=== PATIENT | female | born 1965 | race Caucasian/White ===

== ENCOUNTER → 2016-11-06 | Outpatient (CLI) | payer OTHER ==
--- NOTE | 2016-11-06 15:54 | RAD ---
Pelvic ultrasound, 11/06/2016: History: Dyspareunia Transabdominal and transvaginal scans were obtained. The uterus is within normal limits in size. The central uterine echo complex is not thickened. No uterine mass is seen. The ovaries are of normal size. No adnexal mass is evident. IMPRESSION: No significant abnormality is detected.
== END | disposition home or self-care (01) ==
LOC: US 15:03
PROVIDERS: ATTEND Nurse Practitioner Women's Health
DX: N94.10 Unspecified dyspareunia (principal)
CPT/HCPCS: 76830; 76856

== ENCOUNTER 2016-11-11 12:32 | Emergency (ER) | payer OTHER ==
[~2016-11-11] VITALS: Ht 170.2 cm; Wt 83.9 kg
[2016-11-11 12:54] VITALS: BP 135/74
--- NOTE | 2016-11-11 13:56 | RAD ---
Sacrum and coccyx 3 views. History: Fall yesterday, landed onto elbow, pain tailbone and lower back 3 views were taken of the sacrum and coccyx. There is slight deformity the anterior mid sacrum on the lateral view, a nondisplaced fracture is possible. Coccyx is in normal alignment. MRI could be of benefit for better evaluation. Impression: 1. Possible nondisplaced fracture of the sacrum.
--- NOTE | 2016-11-11 13:58 | RAD ---
Lumbar spine 3 views. History: Fall, pain 3 views were taken of the lumbar spine. The spine is in normal alignment. Disc spaces are normal in height. A fracture is not identified. Again noted is the step-off of the anterior cortex of the sacrum suggesting a sacral fracture. Impression: 1. Possible sacral fracture. 2. No fracture or acute osseous abnormality in the lumbar spine.
--- NOTE | 2016-11-11 14:06 | PHYS DOC ---
Past Medical History Past Medical History: Cancer, Other Additional Past Medical Histor: BREAST CANCER, CHEMO, RADIATION TO THYROID Past Surgical History: Other Additional Past Surgical Histo: CHIN IMPLANT, L HAMMER TOE SX, RIGHT ANKLE, MASTECTOMY Alcohol Use: Occasionally Drug Use: None Adult General Chief Complaint Chief Complaint: BACK PAIN OR INJURY [facility] Patient is a 51 year old female complaining of low back pain and tailbone pain after slip and fall yesterday. Patient denies striking her head. Patient denies previous fractures in her lumbar spine her history of spinal cord injuries. Patient states that she has had a tailbone fracture in the past patient denies saddle anesthesia or bowel. Patient denies radiation of pain from her lower back. Of incidental note, patient is a breast cancer survivor for 5 years. Patient denies any history of metastases to the bone. Review of Systems Review of Systems Constitutional: Denies fever or chills [] Eyes: Denies change in visual acuity, redness, or eye pain [] HENT: Denies nasal congestion or sore throat [] Respiratory: Denies cough or shortness of breath [] Cardiovascular: No additional information not addressed in HPI [] GI: Denies abdominal pain, nausea, vomiting, bloody stools or diarrhea [] : Denies dysuria or hematuria [] Musculoskeletal: Denies back pain or joint pain [] Integument: Denies rash or skin lesions [] Neurologic: Denies headache, focal weakness or sensory changes [] Endocrine: Denies polyuria or polydipsia [] Allergies Allergies Allergies Coded Allergies Type Severity Reaction Last Updated Verified No Known Drug Allergies 11/11/16 No Physical Exam Physical Exam Constitutional: Well developed, well nourished, no acute distress, non-toxic appearance. [] HENT: Normocephalic, atraumatic, bilateral external ears normal, oropharynx moist, no oral exudates, nose normal. [] Eyes: PERRLA, EOMI, conjunctiva normal, no discharge. [] Neck: Normal range of motion, no tenderness, supple, no stridor. [] Cardiovascular:Heart rate regular rhythm, no murmur [] Lungs & Thorax: Bilateral breath sounds clear to auscultation [] Abdomen: Bowel sounds normal, soft, no tenderness, no masses, no pulsatile masses. [] Skin: Warm, dry, no erythema, no rash. [] Back: Back is without any evidence of injury or deformity. There is tenderness to palpation at the level of L5 and S1 both midline and paraspinous on any palpable defect or deformity. There is tenderness in the distal sacrum as well as the coccygeal sacral region without palpable defect, deformity, instability or crepitus. Patient has no complaints of pain in her hips or anterior pelvis. Extremities: No tenderness, no cyanosis, no clubbing, ROM intact, no edema. [] Neurologic: Alert and oriented X 3, normal motor function, normal sensory function, no focal deficits noted. [] Psychologic: Affect normal, judgement normal, mood normal. [] Current Patient Data Vital Signs Vital Signs Date Time Temp Pulse Resp B/P Pulse Ox O2 Delivery O2 Flow Rate FiO2 11/11/16 12:54 97.6 73 20 97 Room Air 97.6 EKG EKG [] Radiology/Procedures Radiology/Procedures [] [facility] [address] [place], [place] [id number] IMAGING REPORT Signed PATIENT: ROJAS SANCHEZ ACCOUNT: [id number] : 1965 LOCATION: ER AGE: 51 SEX: F EXAM STATUS: REG ER ORD. PHYSICIAN: WILMER REAVES REASON: fall yesterday-pain in the tailbonne and back PROCEDURE: LUMBAR SPINE 2-3V Lumbar spine 3 views. History: Fall, pain 3 views were taken of the lumbar spine. The spine is in normal alignment. Disc spaces are normal in height. A fracture is not identified. Again noted is the step-off of the anterior cortex of the sacrum suggesting a sacral fracture. Impression: 1. Possible sacral fracture. 2. No fracture or acute osseous abnormality in the lumbar spine. DICTATED and SIGNED BY: BONI BUCKLEY MD DATE: 11/11/16 2270 CC: WILMER REAVES; ANIYA ROLDAN MD ~ Course & Med Decision Making Course & Med Decision Making Pertinent Labs and Imaging studies reviewed. (See chart for details) [] Dragon Disclaimer Dragon Disclaimer This electronic medical record was generated, in whole or in part, using a voice recognition dictation system. Departure Departure Impression: Primary Impression: Lumbosacral strain Additional Impression: Sacral fracture, closed Disposition: 01 HOME, SELF-CARE Condition: GOOD Referrals: ANIYA ROLDAN MD (PCP) Patient Instructions: Lumbosacral Strain, Tailbone Injury, [id number] Additional Instructions: 1. As discussed, there is some buckling to the front part of your lower sacrum suggestive of a bony injury. There is no definitive fracture line. 2. Take the medication as prescribed. 3. Review discharge instructions; particularly reasons to return the emergency department. 4. Call your primary care doctor in the morning to schedule a follow-up appointment to be seen later this week. Scripts Orphenadrine Citrate 100 Mg Tablet.er100 Mg PO daily at bedtime #7 Prov:WILMER REAVES 11/11/16 Hydrocodone/Apap 5-325 ([place] 5-325 Tablet)1 Each Tablet1 Tab PO PRN Q6HRS PRN PAIN #15 TAB Prov:WILMER REAVES 11/11/16 Problem Qualifiers WILMER REAVES Nov 11, 2016 14:05
[2016-11-11] MEDS ORDERED: ORPH100T PO (14:10)
[2016-11-11] MEDS ORDERED: HYDR-971 PO (14:10)
== END 2016-11-11 14:19 | disposition home or self-care (01) ==
LOC: ER 12:32
DX: S32.10XA Unspecified fracture of sacrum, initial encounter for closed fracture (principal); S39.012A Strain of muscle, fascia and tendon of lower back, initial encounter; Z85.3 Personal history of malignant neoplasm of breast; Z90.10 Acquired absence of unspecified breast and nipple; Z79.899 Other long term (current) drug therapy; W01.0XXA Fall on same level from slipping, tripping and stumbling without subsequent striking against object, initial encounter; Y93.89 Activity, other specified; Y92.89 Other specified places as the place of occurrence of the external cause; Y99.8 Other external cause status
CPT/HCPCS: 72100; 72220; 99284

== ENCOUNTER → 2016-11-21 | Outpatient (CLI) | payer OTHER ==
[2016-11-11 12:54] VITALS: BP 135/74
[~2016-11-21] MED LIST: HYDR-971 PO; ORPH100T PO
--- NOTE | 2016-11-21 16:25 | RAD ---
PROCEDURE MRI of the pelvis without contrast dated 11/21/2016. HISTORY Sacral pain after fall 2 weeks ago. TECHNIQUE Routine multiplanar multisequence MR imaging of the sacrum was performed. No contrast administered. COMPARISON None. FINDINGS There is buckling and step off at the anterior cortex of the S3 vertebral segment, seen best on the sagittal sequences. Transverse hypointense line extends to the posterior cortex. No displacement. There is patchy edema throughout the marrow. Sacrum is otherwise intact. Coccyx is intact. Minimal edema in the presacral fat. SI joints are symmetric. Mild spondylotic changes of the lower lumbar spine, incompletely evaluated. Marrow signal is otherwise homogeneous. No additional fractures are seen. Sacral nerve root foramina are adequate. No accessory muscle or soft tissue mass. Visualized course of the bilateral sciatic nerves within normal limits. No significant muscle edema or muscle atrophy. No free fluid. IMPRESSION - Nondisplaced transverse fracture through the upper margin of the S3 sacral segment with slight buckling of the anterior cortex. - Otherwise no significant bony or soft tissue abnormality. Electronically signed by: David Morales (Nov 21, 2016 16:23:48)
== END | disposition home or self-care (01) ==
LOC: MRI 14:54
PROVIDERS: ATTEND Physical Medicine & Rehabilitation
DX: M53.3 Sacrococcygeal disorders, not elsewhere classified (principal)
CPT/HCPCS: 72195

== ENCOUNTER → 2016-11-29 | Outpatient (CLI) | payer OTHER ==
[2016-11-29] VITALS (18 sets, daily range): BP systolic 109–137; BP diastolic 65–85
[~2016-11-29] VITALS: Ht 170.2 cm; Wt 81.6 kg
[~2016-11-29] MED LIST changes: +BUPR100T7 PO; +CEFAZOLIN 1GM IVPB FOR OMNI 50 ML IV ONE; +FENTANYL PF 250 MCG/5 ML VIAL. IV ONE; +FENTANYL PF 250 MCG/5 ML VIAL. ONE; +FLUMAZENIL 0.5 MG/5 ML VIAL. IV ONE; +KETOROLAC TROMETHAMINE 30 MG/ML SYRINGE. IV PRN; +LEVO150T PO; +LIDOCAINE 1% / SOD BICARB 8.4% 20 ML VIAL. IJ ONE; +MIDAZOLAM HCL/PF 5 MG/5 ML VIAL IV ONE; +MIDAZOLAM HCL/PF 5 MG/5 ML VIAL ONE; +NALOXONE 0.4 MG/ML VIAL. ONE; +NAPR220C4 PO; +Vitamin C PO; +Vitamin D PO
[2016-11-29 11:31] LABS: BASO # 0.1 x10^3/uL (0.0-0.2); BASO % 2 % (0-3); EOS % 8 % (0-3); HEMATOCRIT 38.2 % (36.0-47.0); HEMOGLOBIN 12.3 g/dL (12.0-15.5); LYMPH # 2.3 x10^3/uL (1.0-4.8); LYMPH % 35 % (24-48); MEAN CORPUSCULAR HEMOGLOBIN 25 pg (25-35); MEAN CORPUSCULAR HGB CONC 32 g/dL (31-37); MEAN CORPUSCULAR VOLUME 78 fL (79-100); MONO % 7 % (0-9); NEUT % 48 % (31-73); PLATELET COUNT 409 x10^3/uL (140-400); RED BLOOD COUNT 4.89 x10^6/uL (3.50-5.40); RED CELL DISTRIBUTION WIDTH 23.7 % (11.5-14.5); WHITE BLOOD COUNT 6.6 x10^3/uL (4.0-11.0)
[2016-11-29 11:40] LABS: INR 1.1 (0.8-1.1); PROTHROMBIN TIME PATIENT 13.2 SEC (11.7-14.0)
[2016-11-29 12:01] LABS: ANISOCYTOSIS MOD; HYPOCHROMIA SLIGHT; OVALOCYTES PRESENT; PLT ESTIMATE ADEQUATE (ADEQUATE); POIKILOCYTOSIS SLIGHT
--- NOTE | 2016-11-29 13:35 | PDOC ---
MODERATE SEDATION ASSESSMENT RISKS/ALTERNATIVES Risks/Alternatives Risks and alternatives of this type of sedation and procedure discussed with: RISK/ALTERNATIVES: Patient H & P ON CHART H & P H & P on chart and reviewed for co-morbid conditions and appropriate labs. H&P ON CHART: Yes STATUS PREG STATUS ASSESSED: Yes MEDS/ALLERGIES REVIEWED Meds/Allergies Reviewed Medications and Allergies including time and route of recently administered narcotics and sedatives. MEDS/ALLERGIES REVIEWED: Yes ASA RATING ASA RATING: I AIRWAY ASSESSMENT Airway Assessment Airway patency, oral function limitations, presence of caps, crowns, dentures, partials, and ability to extend neck assessed. AIRWAY ASSESSMENT: Yes MALLAMPATI SCORE MALLAMPATI SCORE: II PRE-SEDATION ASSESSMENT PRE-SEDATION ASSESSMENT: Yes ZANDRA BARNETT MD Nov 29, 2016 13:35
--- NOTE | 2016-11-29 13:41 | PDOC1 ---
History and Physical Date of Procedure Date of Admission 11/29/[address] guided bilateral S-3 vertebroplasty Indication Indication 51 YO female with S-3 fracture (by MRI) and persistent significant pain, precipitated by a fall. Past Medical History Cardiovascular: No pertinent hx Pulmonary: No pertinent hx Heme/Onc: Cancer (Dreast ) Past Surgical History Past Surgical History: Mastectomy Current Medications Current Medications Current Medications Lidocaine/Sodium Bicarbonate (Buffered Lidocaine 1%) 20 ml STK-MED ONCE IJ ; Start 11/29/16 at 12:35; Stop 11/29/16 at 12:36; Status DC Midazolam HCl (Versed) 5 mg STK-MED ONCE .ROUTE ; Start 11/29/16 at 12:35; Stop 11/29/16 at 12:36; Status DC Fentanyl Citrate (Fentanyl 5ml Vial) 250 mcg STK-MED ONCE .ROUTE ; Start at 12:35; Stop 11/29/16 at 12:36; Status DC Naloxone HCl (Narcan) 0.4 mg STK-MED ONCE .ROUTE ; Start 11/29/16 at 12:37; Stop 11/29/16 at 12:38; Status DC Flumazenil 0.5 mg 0.5 mg STK-MED ONCE IV ; Start 11/29/16 at 12:38; Stop at 12:39; Status DC Cefazolin Sodium (Ancef 1gm Ivpb For Omni) 50 ml @ As Directed STK-MED ONCE IV ; Start 11/29/16 at 12:43; Stop 11/29/16 at 12:44; Status DC Lidocaine/Sodium Bicarbonate (Buffered Lidocaine 1%) 20 ml 1X ONCE IJ ; Start 11/29/16 at 13:00; Stop 11/29/16 at 13:01; Status DC Midazolam HCl (Versed) 5 mg 1X ONCE IV ; Start 11/29/16 at 13:00; Stop at 13:01; Status DC Fentanyl Citrate 250 mcg 250 mcg 1X ONCE IV ; Start 11/29/16 at 13:00; Stop at 13:01; Status DC Cefazolin Sodium (Ancef 1gm Ivpb For Omni) 50 ml @ 100 mls/hr 1X ONCE IV ; Start 11/29/16 at 13:00; Stop 11/29/16 at 13:29; Status DC Active Scripts Active Orphenadrine Citrate 100 Mg Tablet.er 100 Mg PO DAILY AT BEDTIME [place] 5-325 Tablet (Acetaminophen/Hydrocodone Bitart) 1 Each Tablet 1 Tab PO PRN Q6HRS PRN Reported Aleve (Naproxen Sodium) 220 Mg Capsule 440 Mg PO QID [Vitamin D] 1 Cap PO DAILY [Vitamin C ] 1 Cap PO DAILY Wellbutrin Sr (Bupropion Hcl) 100 Mg Tablet.er 3 Tab PO DAILY Synthroid (Levothyroxine Sodium) 150 Mcg Tablet 1 Tab PO DAILY Allergies Allergies: Coded Allergies: No Known Drug Allergies (Unverified , 11/11/16) Physical Exam Vital Signs Vital Signs Date Time Temp Pulse Resp B/P Pulse Ox O2 Delivery O2 Flow Rate FiO2 11/29/16 13:32 72 16 100 11/29/16 13:25 Nasal Cannula 2.0 11/29/16 12:23 97.9 115/74 97.9 Lungs: Clear to auscultation Heart: Regular rate Psych/Mental Status: Mental status NL Other Tender to palpation over low sacrum. Diagnostic Data/Imaging Images PMC MRI pelvis from 11/21/16 personally reviewed Assessment Assessment S-3 fracture, with persistent, significant pain. Problems: Plan Plan CT guided bilateral S-3 vertebroplasty. ZANDRA BARNETT MD Nov 29, 2016 13:41
--- NOTE | 2016-11-29 13:44 | PDOC ---
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 Post-Procedure Diagnosis Post-Procedure Diagnosis Same Procedure Performed Procedure Performed CT guided bilateral S-3 vertebroplasty Type of Anesthesia Type of Anesthesia Local + Mod sedation Estimated Blood Loss EBL: Trace Condition of Patient Condition of Patient Stable. No apparent complication. Disposition Disposition Home from [facility] post recovery, if no issues. F/u with Dr Garcia and PCP. Full report to follow. ZANDRA BARNETT MD Nov 29, 2016 13:44
--- NOTE | 2016-11-29 16:48 | RAD ---
CT-guided bilateral S-3 vertebroplasty Indication: 51-year-old female with significant sacral pain and with recent S3 fracture (by MRI), precipitated by a fall. Moderate sedation: 41 minutes moderate sedation was provided utilizing a total of 5 g percent and 250 mcg fentanyl, IV. The patient was appropriately monitored by a qualified independent observer throughout the time of moderate sedation. Antibiotic: A single dose of Ancef was administered within 1 hour of the procedure start time. Consent: The procedure was explained in its entirety to the patient and/or the patient's designated wine sales representative by a member of the treatment team. This included a discussion of risks and benefits and commonly accepted alternatives to the procedure, as well as expected consequences of no treatment at all. Discussion of risks included, but was not limited to, those that are most frequent and those that are rare, but possibly severe or life-threatening, as well as the possibility of unforeseen complications. Sterility: All elements of maximal sterile barrier technique, including the use of a cap, mask, sterile gown, sterile gloves, large sterile sheet, appropriate hand hygiene, and 2% chlorhexidine for cutaneous antisepsis (or acceptable alternative antiseptic per current guidelines) were utilized. Procedure: Informed consent was obtained from the patient. She was placed prone on the CT scanner. Conscious sedation was provided with IV Versed and fentanyl. 1 g Ancef was given IV, prophylactically. CT-guided bilateral sacral vertebroplasty needle placement: Preliminary noncontrast CT images were obtained through sacrum in the axial plane. Posterior skin sites suitable for insertion of bilateral S3 vertebroplasty needles were selected and marked. Both areas were prepped and draped in the usual sterile fashion, utilizing all elements of maximal sterile barrier technique, as described above. Using aseptic technique, local anesthesia, and CT guidance, an 11-gauge sacral vertebroplasty needle was carefully advanced through posterior cortex of mid right S3 segment, taking care to avoid right S3 neural foramen. Similarly, using aseptic technique, local anesthesia, and CT guidance, a second 11-gauge sacral vertebroplasty needle was gently advanced through posterior cortex of mid left S3 segment, taking care to avoid left S3 neural foramen.. Satisfactory position of the bilateral vertebroplasty needles was then confirmed with completion CT images. CT-guided bilateral sacral vertebroplasty cement injections: Following successful, uneventful CT-guided insertion of bilateral sacral vertebroplasty needles, contrast opacified polymethylmethacrylate was carefully injected through both needles, in small [address] images were obtained following each small cement injection. This resulted in satisfactory contrast opacification of S3, bilaterally. There was no abnormal extraosseous extension of opacified cement into S3 neural foramina or into presacral space. The sacral vertebroplasty needles were then removed and sterile dressings were applied. Patient tolerated the procedure well without apparent complication. She was transported from the CT suite to the observation area in stable condition. Impression: Successful, uneventful CT-guided bilateral S3 vertebroplasty, as described. PQRS Compliance Statement: One or more of the following individualized dose reduction techniques was utilized for this CT procedure: 1. Automated exposure control. 2. Adjustment of MA and/or KV according to patient size. 3. Iterative reconstruction technique.
== END | disposition home or self-care (01) ==
LOC: INTRAD 11:03
PROVIDERS: ATTEND Radiology Vascular & Interventional Radiology
DX: S32.10XA Unspecified fracture of sacrum, initial encounter for closed fracture (principal); W19.XXXA Unspecified fall, initial encounter; Y93.9 Activity, unspecified; Y92.9 Unspecified place or not applicable; Y99.9 Unspecified external cause status; E03.9 Hypothyroidism, unspecified
CPT/HCPCS: 22511; 36415; 85007; 85027; 85610; C1758; C1892; J0690; J1885; J2250; J3010

== ENCOUNTER → 2017-01-10 | Outpatient (CLI) | payer OTHER ==
[2016-11-29 15:30] VITALS: BP 121/74
[~2017-01-10] MED LIST changes: -CEFAZOLIN 1GM IVPB FOR OMNI 50 ML IV ONE; -FENTANYL PF 250 MCG/5 ML VIAL. IV ONE; -FENTANYL PF 250 MCG/5 ML VIAL. ONE; -FLUMAZENIL 0.5 MG/5 ML VIAL. IV ONE; -KETOROLAC TROMETHAMINE 30 MG/ML SYRINGE. IV PRN; -LIDOCAINE 1% / SOD BICARB 8.4% 20 ML VIAL. IJ ONE; -MIDAZOLAM HCL/PF 5 MG/5 ML VIAL IV ONE; -MIDAZOLAM HCL/PF 5 MG/5 ML VIAL ONE; -NALOXONE 0.4 MG/ML VIAL. ONE
[2017-01-10 14:47] LABS: FREE T4 1.21 ng/dL (0.76-1.46)
[2017-01-10 21:12] LABS: ESTRADIOL LEVEL 90.3 pg/mL (.); PROGESTERONE 1.7 ng/mL (.)
[2017-01-13 10:13] LABS: % FREE TESTOSTERONE 1.18 % (0.50-2.80); TESTOSTERONE FREE 2.81 ng/dL (0.10-0.85); TESTOSTERONE TOTAL 238 ng/dL (8-48)
== END | disposition home or self-care (01) ==
LOC: LAB 14:00
PROVIDERS: ATTEND Nurse Practitioner Women's Health
DX: N95.9 Unspecified menopausal and perimenopausal disorder (principal); E07.9 Disorder of thyroid, unspecified
CPT/HCPCS: 36415; 82670; 84144; 84402; 84403; 84439; 84443; 84481

== ENCOUNTER → 2017-03-28 | Outpatient (CLI) | payer OTHER ==
[2016-11-29 15:30] VITALS: BP 121/74
[2017-03-28 16:15] LABS: FREE T4 1.29 ng/dL (0.76-1.46)
== END | disposition home or self-care (01) ==
LOC: LAB 15:24
PROVIDERS: ATTEND Nurse Practitioner Women's Health
DX: E89.0 Postprocedural hypothyroidism (principal)
CPT/HCPCS: 36415; 84439; 84443; 84481

== ENCOUNTER → 2017-12-06 | Outpatient (CLI) | payer OTHER ==
[2017-12-06 17:17] LABS: THYROID STIM HORMONE (TSH) 1.088 uIU/mL (0.358-3.74)
[2017-12-06 17:17] LABS: FREE T4 1.08 ng/dL (0.76-1.46)
[2017-12-07 06:15] LABS: PROGESTERONE 1.1 ng/mL (.)
[2017-12-07 06:15] LABS: ESTRADIOL LEVEL 99.9 pg/mL (.)
[2017-12-10 11:24] LABS: % FREE TESTOSTERONE 1.79 % (0.50-2.80); TESTOSTERONE FREE 3.38 ng/dL (0.10-0.85); TESTOSTERONE TOTAL 189 ng/dL (3-41)
[2017-12-10 15:29] LABS: ESTRONE LEVEL 65 pg/mL (.)
== END | disposition home or self-care (01) ==
LOC: LAB 16:23
DX: E03.9 Hypothyroidism, unspecified (principal); N95.9 Unspecified menopausal and perimenopausal disorder; F52.0 Hypoactive sexual desire disorder
CPT/HCPCS: 36415; 82670; 82679; 84144; 84402; 84403; 84439; 84443; 84481

== ENCOUNTER → 2018-02-13 | Outpatient (CLI) | payer OTHER ==
[2018-02-13 15:57] LABS: FREE T4 1.09 ng/dL (0.76-1.46)
[2018-02-13 16:01] LABS: THYROID STIM HORMONE (TSH) < 0.007 uIU/mL (0.358-3.74)
[2018-02-14 01:12] LABS: PROGESTERONE 1.4 ng/mL (.)
[2018-02-14 01:12] LABS: ESTRADIOL LEVEL 22.9 pg/mL (.)
[2018-02-17 14:23] LABS: ESTRONE LEVEL 38 pg/mL (.)
[2018-02-18 10:24] LABS: % FREE TESTOSTERONE 2.12 % (0.50-2.80); TESTOSTERONE TOTAL 80 ng/dL (3-41)
== END | disposition home or self-care (01) ==
LOC: LAB 15:07
DX: N95.9 Unspecified menopausal and perimenopausal disorder (principal)
CPT/HCPCS: 36415; 82670; 82679; 84144; 84402; 84403; 84439; 84443; 84481

== ENCOUNTER 2018-06-17 14:26 | Emergency (ER) | payer OTHER ==
[~2018-06-17] VITALS: Ht 165.1 cm; Wt 81.6 kg
[2018-06-17 15:14] VITALS: BP 147/85
[2018-06-17] MEDS ORDERED: ORPHENADRINE CITRATE 60 MG/2 ML VIAL. IM ONE (15:45)
[2018-06-17] MEDS ORDERED: KETOROLAC 15 MG/ML VIAL. IM ONE (15:45)
[2018-06-17] MEDS ORDERED: NAPR-514 PO (16:31)
[2018-06-17] MEDS ORDERED: ORPH100T PO (16:31)
--- NOTE | 2018-06-17 16:31 | PHYS DOC ---
Past Medical History Past Medical History: Cancer, Other Additional Past Medical Histor: BREAST CANCER, CHEMO, RADIATION TO THYROID Past Surgical History: Other Additional Past Surgical Histo: CHIN IMPLANT, L HAMMER TOE SX, RIGHT ANKLE, MASTECTOMY Alcohol Use: Occasionally Drug Use: None Adult General Chief Complaint Chief Complaint: NECK INJURY HPI HPI Patient is a 53 year old female who presents to the emergency Department today with complaints of pain in her neck that increases with movement. 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 She denies feeling any pop or any known injury. She denies any weakness, numbness, or tingling of her upper extremities. Patient states her neck pain shoots into her shoulders bilaterally and increases with movement. She reports her pain as a 7 out of 10 on the pain scale. States she has been taking Aleve and alternating the application of ice and heat to the sore areas for relief. Review of Systems Review of Systems Constitutional: Denies fever or chills [] Respiratory: Denies cough, wheezing, or shortness of breath [] Cardiovascular: Denies chest pain Musculoskeletal: Denies back pain or joint pain; reports pain in her neck that travels to her bilateral posterior shoulders [] Integument: Denies rash or skin lesions [] Neurologic: Denies headache, numbness, tingling, focal weakness or sensory changes of the extremities [] All other systems were reviewed and found to be within normal limits, except as documented in this note. Current Medications Current Medications Current Medications Medications (Trade) Dose Ordered Sig/Jesus Start Time Stop Time Status Last Admin Dose Admin Ketorolac Tromethamine (Toradol) 30 mg 1X ONCE 06/17/18 15:45 06/17/18 15:46 DC 06/17/18 16:05 30 MG Orphenadrine Citrate (Norflex) 60 mg 1X ONCE 06/17/18 15:45 06/17/18 15:46 DC 06/17/18 16:04 60 MG Allergies Allergies Allergies Coded Allergies Type Severity Reaction Last Updated Verified No Known Drug Allergies 11/11/16 No Physical Exam Physical Exam Constitutional: Well developed, well nourished, no acute distress, non-toxic appearance. [] HENT: Normocephalic, atraumatic, bilateral external ears normal, nose normal. [] Eyes: PERRLA, EOMI, conjunctiva normal, no discharge. [] Neck: No bony tenderness with palpation, supple, no stridor; limited range of motion when looking to the right due to pain expressed by patient patient has full forward and posterior motion of neck [] Skin: Warm, dry, no erythema, no rash. [] Back: No tenderness, no CVA tenderness. [] Extremities: No tenderness, no cyanosis, no clubbing, ROM intact, no edema. [] Neurologic: Alert and oriented X 3, normal motor function, normal sensory function, no focal deficits noted. [] Psychologic: Affect normal, judgement normal, mood normal. [] Current Patient Data Vital Signs Vital Signs Date Time Temp Pulse Resp B/P (MAP) Pulse Ox O2 Delivery O2 Flow Rate FiO2 18 15:14 98.0 60 16 147/85 (105) 99 Room Air 98.0 EKG EKG [] Radiology/Procedures Radiology/Procedures Discussed x-rays with patient, advised that without injury the likelihood that there is a bony abnormality is a slim, patient agrees.She declines to have x- ray done.[] Course & Med Decision Making Course & Med Decision Making Pertinent Labs and Imaging studies reviewed. 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 Her vital signs are stable. Her physical exam is not concerning for an acute fracture or herniated disc. She was given IM injections of Toradol and orphenadrine in the emergency department stated that she started to get a little relief after the injections. Advised patient to follow up with her primary care doctor for further evaluation. We'll prescribe naproxen and orphenadrine for home use. Patient also encouraged to continue application of heat or ice for comfort. She verbalized an understanding of home care, prescriptions, follow-up, and return to ED instructions with no further questions or concerns. Dragon Disclaimer Dragon Disclaimer This electronic medical record was generated, in whole or in part, using a voice recognition dictation system. Departure Departure Impression: Primary Impression: Cervical strain, acute Disposition: HOME, SELF-CARE Condition: STABLE Referrals: ANIYA ROLDAN MD (PCP) Patient Instructions: Cervical Sprain, [id number] Additional Instructions: Continue the application of ice or heat as needed for comfort. Fill the prescriptions and use them as directed. Follow-up with your primary care doctor in the next 1-2 days. Return to the emergency room if her symptoms worsen. Scripts Orphenadrine Citrate (ORPHENADRINE CITRATE) 100 Mg Tablet.er 1 TAB PO BID PRN for PAIN for 10 Days, #20 TAB 0 Refills Prov: KATERINA BOOTH APRN 06/17/18 Naproxen (NAPROXEN) 500 Mg Tablet 1 TAB PO BID PRN for PAIN for 10 Days, #20 TAB 0 Refills Prov: KATERINA BOOTH APRN 06/17/18 Problem Qualifiers Primary Impression: Cervical strain, acute Encounter type: initial encounter Qualified Codes: S16.1XXA - Strain of muscle, fascia and tendon at neck level, initial encounter KATERINA BOOTH APRN Jun 17, 2018 16:31
== END 2018-06-17 16:40 | disposition home or self-care (01) ==
LOC: ER 14:26
DX: S16.1XXA Strain of muscle, fascia and tendon at neck level, initial encounter (principal); M25.512 Pain in left shoulder; M25.511 Pain in right shoulder; Z90.10 Acquired absence of unspecified breast and nipple; X58.XXXA Exposure to other specified factors, initial encounter; Y93.89 Activity, other specified; Y92.89 Other specified places as the place of occurrence of the external cause; Y99.8 Other external cause status
CPT/HCPCS: 96372; 99284; J1885; J2360

== ENCOUNTER → 2018-07-30 | Outpatient (CLI) | payer OTHER ==
[~2018-07-30] MED LIST changes: +0.9 % SODIUM CHLORIDE 10 ML DISP.SYRIN. ID ONE; +CONTRAST GIVEN. MC PRN; +GADOBUTROL 7.5 MMOL/7.5 ML VIAL INT ART ONE; +IOHEXOL 240 MG/ML 50ML VIAL. INT ART ONE; +IOHEXOL 300 MG/ML 50 ML VIAL. INT ART ONE; +LIDOCAINE 1% Multi-Dose 20 ML VIAL. ID ONE; +NAPR-514 PO
--- NOTE | 2018-07-30 13:37 | KCIC ---
MR arthrogram of the right shoulder Indication: Right shoulder pain. Possible superior labral tear or rotator cuff pathology. Technique: Intra-articular contrast injected into the glenohumeral joint and is reported separately. Routine 4 plane sequences were obtained, including ABER positioning. FINDINGS: Artifact: No significant image degradation. Acromioclavicular joint: Mildly degenerative. No significant undersurface mass effect. Rotator cuff: * Supraspinatus-infraspinatus tendon: Full-thickness tear of the supraspinatus tendon, measures about 1 cm AP. Although margins are poorly defined the transverse measurement is about 15 mm. Full-thickness tear * Subscapularis tendon: Mild internal signal may be due to injection during the procedure. No high-grade tear. * Muscle bulk: Mild atrophy. * Subacromial subdeltoid bursa: Mild fluid accumulation. Articular cartilage: No acute cartilage defect or advanced DJD. Labrum: No evidence of labral tear or para labral cyst Biceps tendon: Intact Bones: Cystic changes at the greater tuberosity. No aggressive bone destruction. Soft tissue: No acute findings. Impression: Small full-thickness tear of the supraspinatus tendon. Electronically signed by: David Beach MD (07/30/2018 1:34 PM) [facility]
--- NOTE | 2018-08-04 17:05 | KCIC ---
Fluoroscopically guided injection of the right shoulder to facilitate a MR arthrogram 07/30/2018 Clinical history: Chronic right shoulder pain. Technique: After the risks and benefits of the procedure were explained to the patient, written informed consent was obtained. The anterior skin surface of the right shoulder was prepped and draped in sterile fashion. 1% lidocaine was used as local anesthetic. Under fluoroscopic guidance, a 22-gauge spinal needle was advanced into the anterior aspect of the right glenohumeral joint. Intra-articular position of the needle was confirmed with 5 cc of Omnipaque 300. Following this a solution of 5 cc of lidocaine, 10 cc normal saline, 5 cc of Omnipaque 300 and 0.1 cc of Gadavist were injected into the right shoulder under fluoroscopic control. Following this the needle was removed and hemostasis achieved at the puncture site. A sterile bandage was placed on the skin puncture site. The patient tolerated the procedure well and there were no immediate complications. The patient was taken to MRI for further imaging. The total fluoroscopic time for this study was 35 seconds. 1 digital fluoroscopic captured radiograph of the right shoulder was obtained. Impression: Technically successful injection of the right shoulder joint under fluoroscopy as outlined above. Electronically signed by: Wang Rodriguez MD (08/04/2018 5:01 PM) [facility]
== END | disposition home or self-care (01) ==
LOC: KCIC 11:12
PROVIDERS: ATTEND Orthopaedic Surgery
DX: S46.011A Strain of muscle(s) and tendon(s) of the rotator cuff of right shoulder, initial encounter (principal); M19.011 Primary osteoarthritis, right shoulder; G89.29 Other chronic pain; Z85.3 Personal history of malignant neoplasm of breast; Z79.899 Other long term (current) drug therapy; X58.XXXA Exposure to other specified factors, initial encounter; Y93.89 Activity, other specified; Y92.89 Other specified places as the place of occurrence of the external cause; Y99.8 Other external cause status
CPT/HCPCS: 20610; 73040; 73222; A9585; Q9967

== ENCOUNTER → 2018-07-31 | Outpatient (CLI) | payer OTHER ==
[~2018-07-31] MED LIST changes: -0.9 % SODIUM CHLORIDE 10 ML DISP.SYRIN. ID ONE; -CONTRAST GIVEN. MC PRN; -GADOBUTROL 7.5 MMOL/7.5 ML VIAL INT ART ONE; -IOHEXOL 240 MG/ML 50ML VIAL. INT ART ONE; -IOHEXOL 300 MG/ML 50 ML VIAL. INT ART ONE; -LIDOCAINE 1% Multi-Dose 20 ML VIAL. ID ONE
[2018-07-31 11:18] LABS: FREE T4 1.26 ng/dL (0.76-1.46); THYROID STIM HORMONE (TSH) 0.317 uIU/mL (0.358-3.74)
[2018-07-31 19:17] LABS: ESTRADIOL LEVEL 40.6 pg/mL (.); PROGESTERONE 2.2 ng/mL (.)
[2018-08-03 18:13] LABS: TESTOSTERONE FREE 2.21 ng/dL (0.10-0.85); TESTOSTERONE TOTAL 164 ng/dL (3-41)
== END | disposition home or self-care (01) ==
LOC: LAB 10:25
PROVIDERS: ATTEND Nurse Practitioner Women's Health
DX: N95.9 Unspecified menopausal and perimenopausal disorder (principal); E03.9 Hypothyroidism, unspecified; Z87.891 Personal history of nicotine dependence
CPT/HCPCS: 36415; 82626; 82670; 84144; 84402; 84403; 84439; 84443; 84481

== ENCOUNTER 2018-09-16 08:47 | Day surgery (SDC) | payer OTHER ==
[~2018-09-16] VITALS: Ht 172.7 cm; Wt 75.7 kg
[~2018-09-16 08:47] MED LIST changes: +CALC-98 PO; +DESV50TA PO; +HYDROmorphone 2 MG/ML VIAL IV PRN; +IV RINGERS,LACTATED 1000ML 1,000 ML IV SCH; +LIDOCAINE 1% PF 2 ML VIAL. ID PRN; +LIOT5TAB3 PO; +MORPHINE SULFATE 2 MG/ML VIAL. IV PRN; +ONDANSETRON PF 4 MG/2 ML VIAL. IV PRN; +PROCHLORPERAZINE 10 MG/2 ML VIAL. IV PRN; +TRAM50TA PO; +fentaNYL PF VIAL 100 MCG/2 ML VIAL IV PRN
[2018-09-16] MEDS ORDERED: ROPIVacaine 0.5% PF 20 ML VIAL. ONE (09:33)
[2018-09-16] MEDS ORDERED: BUPIVACAINE MPF 0.75% DEXTROSE 2 ML AMPUL. EPID ONE (10:00)
[2018-09-16] MEDS ORDERED: PROPOFOL 20 ML IV ONE (11:26)
[2018-09-16] MEDS ORDERED: ROCURONIUM 50 MG/5 ML VIAL. ONE ×2 (11:43→14:09)
[2018-09-16] MEDS ORDERED: ONDANSETRON PF 4 MG/2 ML VIAL. ONE (11:44)
[2018-09-16] MEDS ORDERED: DEXAMETHASONE SOD PHOS 20 MG/5 ML VIAL. ONE (11:44)
[2018-09-16] MEDS ORDERED: EPINEPHrine VIAL 30 MG/30 ML VIAL ONE (11:53)
[2018-09-16] MEDS ORDERED: MIDAZOLAM HCL/PF 2 MG/2 ML VIAL. ONE (12:11)
[2018-09-16] MEDS ORDERED: fentaNYL PF VIAL 100 MCG/2 ML VIAL ONE (12:11)
[2018-09-16] MEDS ORDERED: LIDOCAINE 1% PF 5 ML VIAL. ONE (12:11)
[2018-09-16] MEDS ORDERED: PHENYLEPHRINE in 0.9% NACL PF 1 MG/10 ML SYRINGE. IV ONE (13:16)
[2018-09-16] MEDS ORDERED: NEOSTIGMINE METHYLSULFATE 5 MG/5 ML SYRINGE. ONE (14:46)
[2018-09-16] MEDS ORDERED: GLYCOPYRROLATE 1 MG/5 ML VIAL. ONE (14:47)
[2018-09-16] MEDS ORDERED: SEVOFLURANE > 120 MINUTES. IH ONE (15:12)
[2018-09-16] MEDS ORDERED: oxyCODONE/APAP 7.5/325 1 TAB TABLET PO ONE (15:30)
--- NOTE | 2018-09-16 15:36 | DISCH ---
DISCHARGE INSTRUCTIONS Condition on Discharge Condition on Discharge: Stable Activity After Discharge Activity Instructions for Disc: Activity as tolerated, Other, see below ( immobilizer on at night, fine motor use of right arm with elbow at side during the day, may remove for pendulum exercises and gentle passive motion) Lifting Instructions after Dis: No heavy lifting, No pulling or pushing Driving Instructions after Dis: Do not drive today Diet after Discharge Diet after Discharge: Regular Wound Incision Care Wound/Incision Care: Ice to area for comfort, Change dressing (remove dressing after 2 days may then shower) Community/Resources/Services Services at Discharge: PT EVALUATE & TREAT (passive range of motion to right shoulder expected 4 weeks) Contacting the [facility] after DC Call your doctor for: Concerns you may have Follow-Up Follow up with: Elder 1 week VICKY FIERRO MD Sep 16, 2018 15:36
[2018-09-16] MEDS ORDERED: OXYC-327 PO (15:37)
[2018-09-16 16:00] VITALS: BP 106/68
--- NOTE | 2018-09-16 19:16 | PDOC4 ---
Operative Note Operative Note Date of surgery: 09/16/2018 Preoperative diagnosis: Full-thickness right shoulder rotator cuff tear Postoperative diagnosis: Same Operative procedure: Right shoulder arthroscopy and arthroscopic rotator cuff repair Surgeon: Elder Assist: Oz Anesthesia: Gen. 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 She had injured her dominant right shoulder a few months ago and a lifting injury at work. Unfortunately the pain and weakness did not improve culminating in a MRI of her shoulder which showed a full- thickness rotator cuff tear. She says this feels similar to what she did feel on the left shoulder underwent a similar procedure several years ago. The shoulder is very limiting to her and her daily activities as well as work activities precluding lifting away from her body working overhead and giving her some problems sleeping at night. We have talked about nonoperative measures such as physical therapy but that was previously no help to her. We talked about operative treatment with repair of the rotator cuff the long recovery process associated with that the rationale for protection and risks of possible nonhealing continued pain infection nerve or blood vessel damage medical or other anesthetic complications among others all her questions were answered she wishes to proceed with surgical evaluation and treatment. Operative text: Patient was identified procedure verified patient placed in the supine position on the operating table. After adequate amounts of general anesthesia plus a pre-existing scalene block were obtained she was placed in the decubitus position right side up all bony prominences were well-padded and the right shoulder was examined under anesthesia found a full range of motion no instability. The right shoulder was then prepped and draped in standard sterile fashion and after timeout was performed patient procedure identified and verified a standard posterior portal was established anterior portal established using spinal needle localization and the shoulder joint was systematically examined. Biceps anchor was found to be intact superior labrum with minimal degenerative change she had an unusual variant of the labrum was some attachment to the subscapularis but no evidence of separation of the labrum anteriorly subscapularis tendon itself was noted be intact is no sign of biceps subluxation she was noted to have a full-thickness supraspinatus tear anteriorly on palpation normal insertion of the infraspinatus and bare area of the humerus. Capsule ligament structures were likewise otherwise normal other than the anatomical variant anterior superiorly of the labrum. Glenohumeral surfaces were well-preserved. Subacromial space was then entered and bursa was cleared to allow visualization of the rotator cuff she had a full-thickness rotator cuff tear that actually had viable tissue laterally and a strip of tissue and an additional tear little less than a centimeter medially. These were layered over one another somewhat and after thorough probing I decided to perform a double row repair incorporating all of the tissue. The rotator cuff footprint was debrided back to bleeding tissue without decortication. 2 double loaded juggernaut anchors were placed medially and provided excellent fixation. A were placed in mattress configuration and medial row was tied down using sliding locking knots backed up by alternating post-half hitches. A lateral row repair was completed with a size 5.5 HubChilla anchor. This was supplemented by an additional single suture placed through the lateral row anchor due to loss of fixation of a 4.5 laterally placed anchor initially. Medial row nevertheless remained intact and excellent apposition of the rotator cuff repair was noted under all degrees of internal/external rotation. She really did not have significant anterior acromial spurring or involvement of the acromioclavicular joint candidate for no additional bony work was performed. The joint was drained of arthroscopic fluid portals closed with nylon suture sterile dressings were applied she is placed in an immobilizer and returned to preoperative holding in stable condition having tolerated procedure well VICKY FIERRO MD Sep 16, 2018 19:16
== END 2018-09-16 16:00 | disposition home or self-care (01) ==
LOC: SURG 08:47
PROVIDERS: ATTEND Orthopaedic Surgery
DX: S46.011A Strain of muscle(s) and tendon(s) of the rotator cuff of right shoulder, initial encounter (principal); X58.XXXA Exposure to other specified factors, initial encounter; Y93.89 Activity, other specified; Y92.89 Other specified places as the place of occurrence of the external cause; Y99.8 Other external cause status; M67.813 Other specified disorders of tendon, right shoulder; M19.011 Primary osteoarthritis, right shoulder; E03.9 Hypothyroidism, unspecified; Z87.891 Personal history of nicotine dependence; Z85.3 Personal history of malignant neoplasm of breast; Z98.890 Other specified postprocedural states; Z79.899 Other long term (current) drug therapy
CPT/HCPCS: 29822; 29827; A7015; C1713; J0171; J0690; J1100; J2250; J2370; J2405; J2704; J2710; J2795; J3010; J3490; J7120

== ENCOUNTER → 2018-12-01 | Outpatient (CLI) | payer OTHER ==
[~2018-12-01] MED LIST changes: +CONTRAST GIVEN. MC PRN; +GADOBUTROL 7.5 MMOL/7.5 ML VIAL INT ART ONE; +HYDR-3164 PO; -HYDR-971 PO; -HYDROmorphone 2 MG/ML VIAL IV PRN; +IOHEXOL 300 MG/ML 50 ML VIAL. INT ART ONE; -IV RINGERS,LACTATED 1000ML 1,000 ML IV SCH; +LIDOCAINE 1% Multi-Dose 20 ML VIAL. ID ONE; -LIDOCAINE 1% PF 2 ML VIAL. ID PRN; -MORPHINE SULFATE 2 MG/ML VIAL. IV PRN; -ONDANSETRON PF 4 MG/2 ML VIAL. IV PRN; +OXYC1TAB19 PO; +OXYC1TAB22 PO; -PROCHLORPERAZINE 10 MG/2 ML VIAL. IV PRN; -fentaNYL PF VIAL 100 MCG/2 ML VIAL IV PRN
--- NOTE | 2018-12-01 16:02 | KCIC ---
EXAM: Right glenohumeral joint injection WITH Fluoroscopic guidance DATE: 12/01/2018 2:30 PM CLINICAL HISTORY: Right glenohumeral joint pain, limited range of motion. COMPARISON: None pertinent TECHNIQUE: The patient was informed of the indications and alternatives for this procedure as well as risks and benefits. No immediate contraindication identified. The patient provided informed, written consent. Laterality was confirmed by the entire team following a time out. Following initial Right glenohumeral joint localization, a suitable area was sterilely prepped and draped. Local anesthesia was administered with 1% xylocaine. With intermittent fluoroscopic observation, a 22-gauge spinal needle was advanced into the Right glenohumeral joint sheath/capsule with confirmation of intra-synovial position with fluoroscopy. Subsequent infusion 12 cc solution containing 10 cc saline, 5 cc lidocaine 1%, 5 cc Isovue and 0.1 cc gadolinium. Hemostasis with local pressure. Local clinical exam negative for immediate complication. Patient informed re local potential signs or symptoms that may indicate need to return to ER/Ordering physician for further evaluation. Patient informed re precautionary measures after intra-synovial injection of anesthetic. Patient expressed understanding. Performing Physicians: Dr. Yesenia Brennan Blood Loss: 0 cc Total Fluoroscopy time: 5 seconds Total spot images taken: 0 Total fluoroscopic screening save images: 1 IMPRESSION: Successful intra-synovial injection right glenohumeral joint per clinical request. Electronically signed by: Jus Brennan MD (12/01/2018 3:57 PM) [facility]
--- NOTE | 2018-12-01 16:49 | KCIC ---
EXAM: MR arthrogram right shoulder DATE: 12/01/2018 3:30 PM COMPARISON: 12/01/2018, 07/30/2018 INDICATION: Right shoulder pain TECHNIQUE: Multiplanar, multisequence MRI of the right shoulder was performed without IV contrast. Intra-articular gadolinium contrast was administered. Please see separate report for full procedure details. FINDINGS: Iatrogenic distention of the right glenohumeral joint with gadolinium contrast. There is distention of the subacromial subdeltoid bursa for full-thickness rotator cuff tear described below. AC joint is congruent. No os acromiale. There is a full-thickness, full width tear of the supraspinatus tendon approximately 2 cm from the attachment measuring 3 cm in AP dimension. Tendon retraction to the level of the AC joint. There are 2 foci of susceptibility artifact within the subacromial-subdeltoid bursa morphologically suspicious for displaced tendon anchor. Increased signal and thickening of the intra-articular segment of the long head biceps tendon is consistent with mild tendinosis. Extra articular long biceps tendon is seen within the bicipital groove. No discrete labral tear is identified. No evidence for fracture or AVN. Focal chondral thinning superiorly. IMPRESSION: 1. Supraspinatus tendon approximately 2 cm from the tuberosity attachment measuring 3 cm in AP dimension with retraction to the level of the AC joint. 2. 2 foci of susceptibility artifact morphologically suspicious for displaced tendon anchor within the subacromial-subdeltoid bursa. 3. Intra-articular long head biceps tendinosis. Electronically signed by: Jus Brennan MD (12/01/2018 4:44 PM) [facility]
== END | disposition home or self-care (01) ==
LOC: KCIC 13:44
PROVIDERS: ATTEND Orthopaedic Surgery
DX: M75.21 Bicipital tendinitis, right shoulder (principal); M75.101 Unspecified rotator cuff tear or rupture of right shoulder, not specified as traumatic
CPT/HCPCS: 73040; 73222; A9585; Q9967

== ENCOUNTER 2018-12-02 09:37 | Day surgery (SDC) | payer OTHER ==
[~2018-12-02 09:37] MED LIST changes: -CONTRAST GIVEN. MC PRN; -GADOBUTROL 7.5 MMOL/7.5 ML VIAL INT ART ONE; -IOHEXOL 300 MG/ML 50 ML VIAL. INT ART ONE; -LIDOCAINE 1% Multi-Dose 20 ML VIAL. ID ONE; -OXYC1TAB22 PO
[2018-12-02] MEDS ORDERED: IV RINGERS,LACTATED 1000ML 1,000 ML IV SCH (10:33)
[2018-12-02] MEDS ORDERED: MIDAZOLAM HCL/PF 2 MG/2 ML VIAL. IV PRN (10:45)
[2018-12-02] MEDS ORDERED: fentaNYL PF VIAL 100 MCG/2 ML VIAL IV PRN (10:45)
[2018-12-02] MEDS ORDERED: LIDOCAINE 1% PF 2 ML VIAL. ID PRN (10:45)
[2018-12-02] MEDS ORDERED: MIDAZOLAM HCL/PF 2 MG/2 ML VIAL. ONE (11:27)
[2018-12-02] MEDS ORDERED: PROPOFOL 20 ML IV ONE (11:28)
[2018-12-02] MEDS ORDERED: fentaNYL PF VIAL 250 MCG/5 ML VIAL ONE (11:28)
[2018-12-02] MEDS ORDERED: DEXAMETHASONE SOD PHOS 20 MG/5 ML VIAL. ONE (11:28)
[2018-12-02] MEDS ORDERED: LIDOCAINE 2% PF Vial for OR 5 ML VIAL. ONE (11:28)
[2018-12-02] MEDS ORDERED: ONDANSETRON PF 4 MG/2 ML VIAL. ONE (11:28)
[2018-12-02] MEDS ORDERED: EPINEPHrine VIAL 30 MG/30 ML VIAL ONE (12:02)
[2018-12-02] MEDS ORDERED: ROPIVacaine 0.5% PF 20 ML VIAL. ONE (12:06)
[2018-12-02] MEDS ORDERED: ePHEDrine PF IN SALINE 50 MG/5 ML DISP.SYRIN IV ONE (12:46)
[2018-12-02] MEDS ORDERED: PHENYLEPHRINE 10 MG/ML VIAL. ONE ×2 (12:47)
[2018-12-02] MEDS ORDERED: SEVOFLURANE > 120 MINUTES. IH ONE (14:44)
[2018-12-02] MEDS ORDERED: GLYCOPYRROLATE 1 MG/5 ML VIAL. ONE (14:57)
[2018-12-02] MEDS ORDERED: NEOSTIGMINE 10 MG/10 ML VIAL. ONE (14:57)
[2018-12-02] MEDS: fentaNYL PF VIAL 100 MCG/2 ML VIAL IV PRN ×2 (16:18→16:40)
--- NOTE | 2018-12-02 16:25 | DISCH ---
DISCHARGE INSTRUCTIONS Condition on Discharge Condition on Discharge: Stable Activity After Discharge Activity Instructions for Disc: Other, see below (arm in sling for support or down at side with gentle pendulum range of motion only. May use right hand with elbow at side no lifting) Lifting Instructions after Dis: No heavy lifting, No pulling or pushing Driving Instructions after Dis: Do not drive today Weight Bearing Status after Di: Other, see below (no physical therapy until follow-up visit) Diet after Discharge Diet after Discharge: Regular Wound Incision Care Wound/Incision Care: Ice to area for comfort, Change dressing (remove dressing after 2 days may then shower) Contacting the after DC Call your doctor for: Concerns you may have Follow-Up Follow up with: Elder 1 week VICKY FIERRO MD Dec 02, 2018 16:25
[2018-12-02] MEDS ORDERED: OXYC1TAB22 PO (16:27)
[2018-12-02] MEDS ORDERED: oxyCODONE/APAP 10/325 1 TAB TABLET PO ONE (16:30)
[2018-12-02 16:53] VITALS: BP 115/70
--- NOTE | 2018-12-02 17:02 | PDOC4 ---
Operative Note Operative Note Date of surgery: 12/02/2018 Preoperative diagnosis: Recurrent rotator cuff tear right shoulder Postoperative diagnosis: Complex rotator cuff tear with significant retraction Operative procedure: Right shoulder arthroscopy debridement and mini open rotator cuff repair Surgeon: Elder Anesthesia: Gen. plus scalene block Estimated blood loss: 15 mL Complications: None Operative indications: Soheila previously underwent a rotator cuff repair and was doing well up until a setback where an object was falling out of her kitchen cabinet and she instinctively raised up her arm to block it in the postoperative recovery. Subsequently had onset of ongoing pain and difficulty recovering from that setback. Given her ongoing symptoms and lack of response to physical therapy we underwent an MRI arthrogram to assess the integrity of her repair and unfortunately showed recurrent rotator cuff tear. I had gone over with her the significance of that the difficulty repairing the rotator cuff for a second time possibility of not healing among other complications and the long likely recovery process. All her questions were answered she wishes to proceed with surgical evaluation and treatment having given informed consent. Operative text: Patient was a 5 procedure verified patient placed in the supine position on the operating table. After adequate amounts of general anesthesia were administered she was placed in the semi-beachchair position and all bony prominences were well-padded and the right shoulder was prepped and draped in standard sterile fashion. After timeout was performed patient procedure identified and verified a standard posterior portal was established in the shoulder joint was systematically examined. Glenohumeral joint surfaces were noted be well preserved as well as the biceps and subscapularis tendons. She clearly had retraction of her rotator cuff tear and if additional transverse defect was noted in the tendon and a complex tear with a major L-shaped of the infraspinatus and posterior portion of the supraspinatus was noted. After mobilization as much as possible of the supraspinatus portion tagging sutures were placed and a mini open incision was placed laterally enlarging the existing lateral portal she was noted to have a large L-shaped irregularly oriented tear with minimal anterior tissue available. Rotator cuff footprint was debrided back to stable bleeding tissue but not decorticated and the multiple tagging sutures were used to establish how of the rotator cuff could best be restored. I first started with a [id number] repair with available tissue and maintained the suture ends for further reinforcement. Further sutures were placed between the posterior major fragment and residual anterior tissue but were not tied at this point. A SMR SITE medical interpositional scaffold was drilled and deployed along the medial side of the rotator cuff footprint and sutures were placed in a mattress fashion and tied and once again the suture ends were preserved for further reinforcement. Additional side-to- side repair was carried out with the tagging sutures using a free needle and tied using reversed half hitches. Overall the repair was able to be accomplished without tension on the tendon however due to the complex nature the repair was somewhat tenuous and was reinforced with the above-mentioned suture ends anchored laterally and anteriorly with a 5.5 SMR SITE medical anchor with excellent results. The repair was tested in all degrees of internal/ external rotation and noted to be with good contact of tissue. I did have a discussion with the patient and her family the relative difficulty of repair and tenuous nature of the repair due to its complexity. We did discuss possible treatment alternatives showed this not heal but tentatively I'm going to hold her off in any physical therapy other than pendulum exercises until reevaluation in 1 week. She was returned to recovery room in stable condition having tolerated procedure well after closure of the mini open incision with buried Vicryl and subcuticular Monocryl the posterior portal with nylon suture VICKY FIERRO MD Dec 02, 2018 17:02
== END 2018-12-02 17:38 | disposition home or self-care (01) ==
LOC: SURG 09:37
PROVIDERS: ATTEND Orthopaedic Surgery
DX: S46.011A Strain of muscle(s) and tendon(s) of the rotator cuff of right shoulder, initial encounter (principal); F41.9 Anxiety disorder, unspecified; E03.9 Hypothyroidism, unspecified; Z85.3 Personal history of malignant neoplasm of breast; Z90.13 Acquired absence of bilateral breasts and nipples; Z98.890 Other specified postprocedural states; Z82.49 Family history of ischemic heart disease and other diseases of the circulatory system; Z82.61 Family history of arthritis; Z83.2 Family history of diseases of the blood and blood-forming organs and certain disorders involving the immune mechanism; Z72.89 Other problems related to lifestyle; Z79.899 Other long term (current) drug therapy; W20.8XXA Other cause of strike by thrown, projected or falling object, initial encounter; Y92.89 Other specified places as the place of occurrence of the external cause; Y93.89 Activity, other specified; Y99.8 Other external cause status; Z91.018 Allergy to other foods
CPT/HCPCS: 23412; A7015; C1713; J0171; J0696; J1100; J2001; J2250; J2405; J2704; J2710; J2795; J3010; J3490; J7120

== ENCOUNTER 2019-01-21 11:56 | Emergency (ER) | payer OTHER ==
[~2019-01-21] VITALS: Ht 172.7 cm; Wt 77.1 kg
[~2019-01-21 11:56] MED LIST changes: +LIOT5TAB PO; -LIOT5TAB3 PO; +OXYC1TAB22 PO
--- NOTE | 2019-01-21 12:44 | PHYS DOC ---
Past Medical History Past Medical History: Cancer, Other Additional Past Medical Histor: BREAST CANCER, CHEMO, RADIATION TO THYROID Past Surgical History: Other Additional Past Surgical Histo: CHIN IMPLANT, L HAMMER TOE SX, RIGHT ANKLE, MASTECTOMY Alcohol Use: Occasionally Drug Use: None Adult General Chief Complaint Chief Complaint: FLANK PAIN HPI HPI Patient is a 53 year old female presented ER today for evaluation of fever and chill, abdominal pain, for several days. Patient says she JUST GOT over the flu about week ago, however she continued to have a fever. Review of Systems Review of Systems Constitutional: POSITIVE fever AND chills [] Eyes: Denies change in visual acuity, redness, or eye pain [] HENT: Denies nasal congestion or sore throat [] Respiratory: Denies cough or shortness of breath [] Cardiovascular: No additional information not addressed in HPI [] GI: Positive for abdominal pain, NO nausea, vomiting, bloody stools or diarrhea [] : Denies dysuria or hematuria [] Musculoskeletal: Denies back pain or joint pain [] Integument: Denies rash or skin lesions [] Neurologic: Denies headache, focal weakness or sensory changes [] Endocrine: Denies polyuria or polydipsia [] All other systems were reviewed and found to be within normal limits, except as documented in this note. Current Medications Current Medications Current Medications Medications (Trade) Dose Ordered Sig/Jesus Start Time Stop Time Status Last Admin Dose Admin Ceftriaxone Sodium (Rocephin) 1 gm 1X ONCE 01/21/19 13:45 01/21/19 13:46 DC 01/21/19 14:03 1 GM Info (CONTRAST GIVEN -- Rx MONITORING) 1 each PRN DAILY PRN 01/21/19 14:00 01/21/19 15:42 DC Iohexol (Omnipaque 300 Mg/ml) 75 ml 1X ONCE 01/21/19 14:00 01/21/19 14:01 DC 01/21/19 14:29 75 ML Sodium Chloride 1,000 ml @ 1,000 mls/hr 1X ONCE 01/21/19 12:45 01/21/19 13:44 DC 01/21/19 13:19 1,000 MLS/HR Allergies Allergies Allergies Coded Allergies Type Severity Reaction Last Updated Verified wheat Allergy Intermediate CELIAC DIS. 12/02/18 Yes Physical Exam Physical Exam Constitutional: Well developed, well nourished, no acute distress, non-toxic appearance. [] HENT: Normocephalic, atraumatic, bilateral external ears normal, oropharynx moist, no oral exudates, nose normal. [] Eyes: PERRLA, EOMI, conjunctiva normal, no discharge. [] Neck: Normal range of motion, no tenderness, supple, no stridor. [] Cardiovascular:Heart rate regular rhythm, no murmur [] Lungs & Thorax: Bilateral breath sounds clear to auscultation [] Abdomen: Bowel sounds normal, soft, There is tenderness to palpation in LLQ, , no masses, no pulsatile masses. [] Skin: Warm, dry, no erythema, no rash. [] Back: No tenderness, no CVA tenderness. [] Extremities: No tenderness, no cyanosis, no clubbing, ROM intact, no edema. [] Neurologic: Alert and oriented X 3, normal motor function, normal sensory function, no focal deficits noted. [] Psychologic: Affect normal, judgement normal, mood normal. [] Current Patient Data Vital Signs Vital Signs Date Time Temp Pulse Resp B/P (MAP) Pulse Ox O2 Delivery O2 Flow Rate FiO2 01/21/19 15:00 62 19 124/98 (107) 99 Room Air 01/21/19 12:40 98.3 98.3 Lab Values Laboratory Tests Test 01/21/19 12:21 01/21/19 12:50 Urine Collection Type Unknown Urine Color Yellow Urine Clarity Clear Urine pH 6.5 Urine Specific [place] <=1.005 Urine Protein Negative mg/dL (NEG-TRACE) Urine Glucose (UA) Negative mg/dL (NEG) Urine Ketones (Stick) Negative mg/dL (NEG) Urine Blood Negative (NEG) Urine Nitrite Negative (NEG) Urine Bilirubin Negative (NEG) Urine Urobilinogen Dipstick 1.0 mg/dL (0.2 mg/dL) Urine Leukocyte Esterase Large (NEG) Urine RBC 0 /HPF (0-2) Urine WBC >40 /HPF (0-4) Urine Squamous Epithelial Cells Mod /LPF Urine Bacteria 0 /HPF (0-FEW) White Blood Count 11.7 x10^3/uL (4.0-11.0) H Red Blood Count 4.05 x10^6/uL (3.50-5.40) Hemoglobin 8.2 g/dL (12.0-15.5) L Hematocrit 26.0 % (36.0-47.0) L Mean Corpuscular Volume 64 fL (79-100) L Mean Corpuscular Hemoglobin 20 pg (25-35) L Mean Corpuscular Hemoglobin Concent 31 g/dL (31-37) Red Cell Distribution Width 18.5 % (11.5-14.5) H Platelet Count 737 x10^3/uL (140-400) H Neutrophils (%) (Auto) 72 % (31-73) Lymphocytes (%) (Auto) 18 % (24-48) L Monocytes (%) (Auto) 8 % (0-9) Eosinophils (%) (Auto) 1 % (0-3) Basophils (%) (Auto) 1 % (0-3) Neutrophils # (Auto) 8.4 x10^3uL (1.8-7.7) H Lymphocytes # (Auto) 2.1 x10^3/uL (1.0-4.8) Monocytes # (Auto) 0.9 x10^3/uL (0.0-1.1) Eosinophils # (Auto) 0.1 x10^3/uL (0.0-0.7) Basophils # (Auto) 0.1 x10^3/uL (0.0-0.2) Platelet Estimate Increased (ADEQUATE) Polychromasia Slight Hypochromasia Marked Anisocytosis Slight Microcytosis Marked Target Cells Few Tear Drop Cells Few Ovalocytes Mod Schistocytes Few Sodium Level 135 mmol/L (136-145) L Potassium Level 3.8 mmol/L (3.5-5.1) Chloride Level 97 mmol/L (98-107) L Carbon Dioxide Level 28 mmol/L (21-32) Anion Gap 10 (6-14) Blood Urea Nitrogen 10 mg/dL (7-20) Creatinine 0.6 mg/dL (0.6-1.0) Estimated GFR (Cockcroft-Gault) 105.4 BUN/Creatinine Ratio 17 (6-20) Glucose Level 105 mg/dL (70-99) H Calcium Level 9.3 mg/dL (8.5-10.1) Total Bilirubin 0.3 mg/dL (0.2-1.0) Aspartate Amino Transferase (AST) 26 U/L (15-37) Alanine Aminotransferase (ALT) 53 U/L (14-59) Alkaline Phosphatase 109 U/L (46-116) Total Protein 7.6 g/dL (6.4-8.2) Albumin 2.4 g/dL (3.4-5.0) L Albumin/Globulin Ratio 0.5 (1.0-1.7) L Lipase 66 U/L (73-393) L Laboratory Tests 01/21/19 12:50 Laboratory Tests 01/21/19 12:50 EKG EKG [] Radiology/Procedures Radiology/Procedures [][facility] [address] [place] [address] IMAGING REPORT Signed PATIENT: ROJAS SANCHEZ ACCOUNT: [id number] : 1965 LOCATION: ER AGE: 53 SEX: F EXAM STATUS: REG ER ORD. PHYSICIAN: GATITO STOREY DO REASON: ABDOMINAL PAIN PROCEDURE: CT ABD PELV W/ IV CONTRST ONLY EXAM: CT Abdomen and Pelvis with IV contrast CLINICAL HISTORY: Abdominal pain. COMPARISON: none TECHNIQUE: Helical CT of the abdomen and pelvis was performed following the administration of intravenous contrast. Axial, coronal and sagittal reformatted images were generated. PQRS compliance statement - One or more of the following individualized dose reduction techniques were utilized for this study: 1. Automated exposure control 2. Adjustment of the mA and/or kV according to patient size 3. Use of iterative reconstruction technique FINDINGS: Lower chest: Bilateral breast implants are seen. Linear opacities lung bases likely scarring/atelectasis. Trace pericardial fluid, likely physiologic. Abdomen and Pelvis: No focal liver lesion. Gallbladder is normal. No biliary ductal dilatation. Spleen is unremarkable. Adrenal glands and pancreas are unremarkable. Symmetric nephrograms. No focal renal lesion. No hydronephrosis. The bladder is at the upper limits of normal for size. This can be correlated for possible voluntary or involuntary causes of urinary retention. Appendix is normal. No small or large bowel dilatation. Moderate colonic stool content. No abdominal or pelvic ascites. No abdominal pelvic lymphadenopathy. Aorta is normal in caliber. Bones: Osseous structures are grossly unremarkable. Methacrylate is seen within the sacrum, likely from prior augmentation change. Central Schmorl's node with mild compression deformity is seen of the superior endplate of L1, age indeterminate. IMPRESSION: 1. No evidence for bowel obstruction. 2. Moderate colonic stool content is seen. 3. Appendix is normal. 4. The distended gallbladder is otherwise unremarkable. No CT evidence for acute cholecystitis. 5. Small superior central Schmorl's node with mild L1 vertebral body height loss. The height loss may represent changes of mild compression fracture, age-indeterminate. Electronically signed by: Jus Cazares MD (01/21/2019 2:50 PM) [facility] DICTATED and SIGNED BY: JUS CAZARES MD DATE: 01/21/19 3895 Course & Med Decision Making Course & Med Decision Making Pertinent Labs and Imaging studies reviewed. (See chart for details) [] Dragon Disclaimer Dragon Disclaimer This electronic medical record was generated, in whole or in part, using a voice recognition dictation system. Departure Departure Impression: Primary Impression: UTI (urinary tract infection) Additional Impression: Constipation Disposition: 01 HOME, SELF-CARE Condition: STABLE Referrals: FELI SHEPARD APRN (PCP) FOLLOW UP WITH YOUR DOCTOR IN 2 DAYS IF NOT IMPROVE. Patient Instructions: Constipation, Adult, Urinary Tract Infection Scripts Cephalexin (CEPHALEXIN) 500 Mg Tablet 1 TAB PO TID for 7 Days, #21 TAB Prov: GATITO STOREY DO 01/21/19 Problem Qualifiers GATITO STOREY DO Jan 21, 2019 12:44
[2019-01-21] MEDS ORDERED: IV NORMAL SALINE 1000ML BAG 1,000 ML IV ONE (12:45)
[2019-01-21 12:53] LABS: BILIRUBIN,URINE NEGATIVE (NEG); CLARITY,URINE CLEAR; COLOR,URINE YELLOW; NITRITE,URINE NEGATIVE (NEG); PH,URINE 6.5; PROTEIN,URINE NEGATIVE (NEG-TRACE)
[2019-01-21 13:08] LABS: BASO # 0.1 x10^3/uL (0.0-0.2); BASO % 1 % (0-3); EOS # 0.1 x10^3/uL (0.0-0.7); EOS % 1 % (0-3); HEMOGLOBIN 8.2 g/dL (12.0-15.5); LYMPH # 2.1 x10^3/uL (1.0-4.8); LYMPH % 18 % (24-48); MEAN CORPUSCULAR HEMOGLOBIN 20 pg (25-35); MEAN CORPUSCULAR HGB CONC 31 g/dL (31-37); MEAN CORPUSCULAR VOLUME 64 fL (79-100); MONO # 0.9 x10^3/uL (0.0-1.1); MONO % 8 % (0-9); NEUT # 8.4 x10^3uL (1.8-7.7); NEUT % 72 % (31-73); PLATELET COUNT 737 x10^3/uL (140-400); RED BLOOD COUNT 4.05 x10^6/uL (3.50-5.40); RED CELL DISTRIBUTION WIDTH 18.5 % (11.5-14.5); WHITE BLOOD COUNT 11.7 x10^3/uL (4.0-11.0)
[2019-01-21 13:16] LABS: CALCIUM 9.3 mg/dL (8.5-10.1); CREATININE 0.6 mg/dL (0.6-1.0); GFR 105.4; POTASSIUM 3.8 mmol/L (3.5-5.1)
[2019-01-21 13:21] LABS: ALBUMIN 2.4 g/dL (3.4-5.0); ALBUMIN/GLOBULIN RATIO 0.5 (1.0-1.7); TOTAL BILIRUBIN 0.3 mg/dL (0.2-1.0); TOTAL PROTEIN 7.6 g/dL (6.4-8.2)
[2019-01-21 13:28] LABS: BACTERIA,URINE 0 /HPF (0-FEW); RBC,URINE 0 /HPF (0-2); SQUAMOUS EPITHELIAL CELL,UR MOD /LPF; WBC,URINE >40 /HPF (0-4)
[2019-01-21] MEDS ORDERED: cefTRIAXone IV Push 1 GM VIAL. IVP ONE (13:45)
[2019-01-21] MEDS ORDERED: CONTRAST GIVEN. MC PRN (14:00)
[2019-01-21] MEDS ORDERED: IOHEXOL 300 MG/ML 100ML VIAL. IV ONE (14:00)
--- NOTE | 2019-01-21 14:53 | RAD ---
EXAM: CT Abdomen and Pelvis with IV contrast CLINICAL HISTORY: Abdominal pain. COMPARISON: none TECHNIQUE: Helical CT of the abdomen and pelvis was performed following the administration of intravenous contrast. Axial, coronal and sagittal reformatted images were generated. PQRS compliance statement - One or more of the following individualized dose reduction techniques were utilized for this study: 1. Automated exposure control 2. Adjustment of the mA and/or kV according to patient size 3. Use of iterative reconstruction technique FINDINGS: Lower chest: Bilateral breast implants are seen. Linear opacities lung bases likely scarring/atelectasis. Trace pericardial fluid, likely physiologic. Abdomen and Pelvis: No focal liver lesion. Gallbladder is normal. No biliary ductal dilatation. Spleen is unremarkable. Adrenal glands and pancreas are unremarkable. Symmetric nephrograms. No focal renal lesion. No hydronephrosis. The bladder is at the upper limits of normal for size. This can be correlated for possible voluntary or involuntary causes of urinary retention. Appendix is normal. No small or large bowel dilatation. Moderate colonic stool content. No abdominal or pelvic ascites. No abdominal pelvic lymphadenopathy. Aorta is normal in caliber. Bones: Osseous structures are grossly unremarkable. Methacrylate is seen within the sacrum, likely from prior augmentation change. Central Schmorl's node with mild compression deformity is seen of the superior endplate of L1, age indeterminate. IMPRESSION: 1. No evidence for bowel obstruction. 2. Moderate colonic stool content is seen. 3. Appendix is normal. 4. The distended gallbladder is otherwise unremarkable. No CT evidence for acute cholecystitis. 5. Small superior central Schmorl's node with mild L1 vertebral body height loss. The height loss may represent changes of mild compression fracture, age-indeterminate. Electronically signed by: Jus Brennan MD (01/21/2019 2:50 PM) [facility]
[2019-01-21 15:00] VITALS: BP 124/98
[2019-01-21 15:10] LABS: PLT ESTIMATE INCREASED (ADEQUATE)
[2019-01-21 15:11] LABS: ANISOCYTOSIS SLIGHT; HYPOCHROMIA MARKED; MICROCYTOSIS MARKED; OVALOCYTES MOD; POLYCHROMASIA SLIGHT; SCHISTOCYTES FEW; TARGET CELLS FEW; TEAR DROP CELLS FEW
[2019-01-21] MEDS ORDERED: CEPH500T PO (15:18)
== END 2019-01-21 15:42 | disposition home or self-care (01) ==
LOC: ER 11:56
DX: N39.0 Urinary tract infection, site not specified (principal); K59.00 Constipation, unspecified; K82.8 Other specified diseases of gallbladder; R50.9 Fever, unspecified; Z90.10 Acquired absence of unspecified breast and nipple; Z91.018 Allergy to other foods
CPT/HCPCS: 36415; 74177; 80053; 81001; 83690; 85025; 87086; 96374; 99284; J0696; J7030; Q9967; 87186

== ENCOUNTER 2019-02-03 12:36 | Emergency (ER) | payer OTHER ==
[~2019-02-03] VITALS: Ht 172.7 cm; Wt 74.8 kg
[~2019-02-03 12:36] MED LIST changes: +CEPH500T PO
[2019-02-03 12:49] VITALS: BP 140/87
--- NOTE | 2019-02-03 13:27 | RAD ---
EXAM: PA and Lateral Views of the Chest DATE: 02/03/2019 1:05 PM INDICATION: COUGH AND CONGESTION X 3 DAYS COMPARISON: No Prior FINDINGS: The heart is not enlarged. Mediastinal and hilar contours are normal. No focal parenchymal airspace opacity. No pleural effusion or pneumothorax. Breast implants are seen IMPRESSION: No evidence for acute cardiopulmonary process. Electronically signed by: Jus Brennan MD (02/03/2019 1:24 PM) [id number]
[2019-02-03] MEDS ORDERED: BENZ100C PO (13:58)
--- NOTE | 2019-02-03 13:59 | PHYS DOC ---
Past Medical History Past Medical History: Cancer, Depression, Hypothyroid, Other Additional Past Medical Histor: BREAST CANCER, CHEMO, RADIATION TO THYROID Past Surgical History: Other Additional Past Surgical Histo: CHIN IMPLANT, L HAMMER TOE SX, RIGHT ANKLE, MASTECTOMY, ROTATOR CUFF Alcohol Use: None Drug Use: None Adult General Chief Complaint Chief Complaint: COUGH HPI HPI Patient is a 53 year old female who presents complaining of a dry cough that began 3 weeks ago after she got diagnosed with influenza. Patient states the cough is still lingering. Denies any fever. Review of Systems Review of Systems Constitutional: Denies fever or chills [] Eyes: Denies change in visual acuity, redness, or eye pain [] HENT: Denies nasal congestion or sore throat [] Respiratory: Reports a dry cough, denies shortness of breath [] Cardiovascular: No additional information not addressed in HPI [] GI: Denies abdominal pain, nausea, vomiting, bloody stools or diarrhea [] : Denies dysuria or hematuria [] Musculoskeletal: Denies back pain or joint pain [] Integument: Denies rash or skin lesions [] Neurologic: Denies headache, focal weakness or sensory changes [] All other systems were reviewed and found to be within normal limits, except as documented in this note. Allergies Allergies Allergies Coded Allergies Type Severity Reaction Last Updated Verified wheat Allergy Intermediate CELIAC DIS. 12/02/18 Yes Physical Exam Physical Exam Constitutional: Well developed, well nourished, no acute distress, non-toxic appearance. [] HENT: Normocephalic, atraumatic, bilateral external ears normal, oropharynx moist, no oral exudates, nose normal. [] Eyes: PERRLA, EOMI, conjunctiva normal, no discharge. [] Neck: Normal range of motion, no tenderness, supple, no stridor. [] Cardiovascular:Heart rate regular rhythm, no murmur [] Lungs & Thorax: Bilateral breath sounds clear to auscultation [] Abdomen: Bowel sounds normal, soft, no tenderness, no masses, no pulsatile masses. [] Skin: Warm, dry, no erythema, no rash. [] Back: No tenderness, no CVA tenderness. [] Extremities: No tenderness, no cyanosis, no clubbing, ROM intact, no edema. [] Neurologic: Alert and oriented X 3, normal motor function, normal sensory function, no focal deficits noted. [] Psychologic: Affect normal, judgement normal, mood normal. [] Current Patient Data Vital Signs Vital Signs Date Time Temp Pulse Resp B/P (MAP) Pulse Ox O2 Delivery O2 Flow Rate FiO2 02/03/19 12:49 97.4 74 18 140/87 (104) 98 Room Air 97.4 EKG EKG [] Radiology/Procedures Radiology/Procedures []PROCEDURE: CHEST PA & LATERAL EXAM: PA and Lateral Views of the Chest DATE: 02/03/2019 1:05 PM INDICATION: COUGH AND CONGESTION X 3 DAYS COMPARISON: No Prior FINDINGS: The heart is not enlarged. Mediastinal and hilar contours are normal. No focal parenchymal airspace opacity. No pleural effusion or pneumothorax. Breast implants are seen IMPRESSION: No evidence for acute cardiopulmonary process. Electronically signed by: Jus Brennan MD (02/03/2019 1:24 PM) [id number] DICTATED and SIGNED BY: JUS BRENNAN MD DATE: 02/03/19 1324 Course & Med Decision Making Course & Med Decision Making Pertinent Labs and Imaging studies reviewed. (See chart for details) This is a 53-year-old female patient who presents to the ED today complaining of a cough that began 3 weeks ago after she got diagnosed with influenza. Chest x-ray is negative. Patient was discharged to home, supportive care measures provided. Follow-up with PCP in 1-2 weeks. Dragon Disclaimer Dragon Disclaimer This electronic medical record was generated, in whole or in part, using a voice recognition dictation system. Departure Departure Impression: Primary Impression: Cough Disposition: 01 HOME, SELF-CARE Condition: STABLE Referrals: FELI SHEPARD APRN (PCP) follow up in 1-2 weeks Patient Instructions: Cough, Adult Additional Instructions: You were evaluated in the emergency room for a cough. Your chest x-ray is negative for any acute findings. Use the prescribed medication as ordered. Come back to the ED at any point symptoms worsen. Scripts Benzonatate (TESSALON PERLE) 100 Mg Capsule 1 CAP PO TID, #30 CAP Prov: RACHEL WILLETT APRN 02/03/19 RACHEL WILLETT APRN Feb 03, 2019 13:58
== END 2019-02-03 14:01 | disposition home or self-care (01) ==
LOC: ER 12:36
DX: R05 Cough (principal); F32.9 Major depressive disorder, single episode, unspecified; E03.9 Hypothyroidism, unspecified; Z91.018 Allergy to other foods
CPT/HCPCS: 71046; 99283

== ENCOUNTER → 2019-12-07 | Outpatient (CLI) | payer OTHER ==
[~2019-12-07] MED LIST changes: +BENZ100C PO; -LIOT5TAB PO; +LIOT5TAB4 PO
--- NOTE | 2019-12-07 17:47 | KCIC ---
MR of the left knee HISTORY: Left knee effusion, pain with weightbearing. Left knee buckled 3 weeks ago. TECHNIQUE: Routine multiplanar sequences are obtained. FINDINGS: No evidence of medial meniscal tear. No evidence of lateral meniscal tear. Anterior and posterior cruciate ligaments are intact. Proximal medial collateral ligament sprain. No high-grade tear. Iliotibial band unremarkable. Fibular collateral ligament, biceps femoris tendon and popliteus tendon are intact. Extensor mechanism is intact. Large joint effusion. Severe chondromalacia at the patellofemoral joint, more so at its medial aspect. Severe cartilage loss at the medial joint compartment. Mild subchondral marrow edema and/or contusion at the medial femoral condyle and medial tibial plateau towards the anterior weightbearing aspect. Mild degenerative changes at the lateral joint. No acute fracture is seen. No evidence of aggressive bone destruction. Small fluid collection along the anterior aspect of the distal semimembranosus tendon, between the tendon and the tibia. IMPRESSION: 1. 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 2. Mild subchondral marrow edema at the anterior weightbearing medial joint compartment. This is in the area of severe chondromalacia and could be degenerative, or acute marrow contusions. 3. Mild fluid collection or bursitis between the distal semimembranosus tendon and posterior tibia. 4. Large joint effusion. Electronically signed by: David Beach MD (12/07/2019 5:44 PM) [id number]
== END | disposition home or self-care (01) ==
LOC: KCIC MRI 15:46
PROVIDERS: ATTEND Orthopaedic Surgery
DX: S83.412A Sprain of medial collateral ligament of left knee, initial encounter (principal); M17.11 Unilateral primary osteoarthritis, right knee; M25.461 Effusion, right knee; M94.261 Chondromalacia, right knee; X58.XXXA Exposure to other specified factors, initial encounter; Y93.89 Activity, other specified; Y92.89 Other specified places as the place of occurrence of the external cause; Y99.8 Other external cause status
CPT/HCPCS: 73721